=== PATIENT | male | born 2000 | race Caucasian/White ===

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

== ENCOUNTER 2019-12-12 14:30 | Emergency (ER) | payer OTHER | END 2019-12-12 15:30 | disposition home or self-care (01) | LOC: ERS 14:30 | DX: B86 Scabies (principal); F31.9 Bipolar disorder, unspecified; F41.9 Anxiety disorder, unspecified; F17.210 Nicotine dependence, cigarettes, uncomplicated | CPT/HCPCS: 99282 ==

== ENCOUNTER 2020-06-06 12:07 | Emergency (ER) | payer OTHER ==
[2020-06-06 12:54] LABS: Bilirubin Negative (Negative); Blood, Urine Negative (Negative); Clarity Clear (Clear); Glucose, Urine (Dipstick) Normal (Negative); Ketone, Urine Negative (Negative); Leukocyte Negative Leu/uL (Negative); Nitrite Negative (Negative); Protein, Urine (Dipstick) 10 mg/dL (Neg-Trace); Specific Gravity, Urine 1.033 (1.002-1.036); Urobilinogen Normal mg/dL (Less than 2); pH, Urine 5.5 (5.0-9.0)
[2020-06-07 20:12] LABS: Chlam.trachomatis by PCR,Urine DETECTED (NotDetected)
== END 2020-06-06 14:02 | disposition home or self-care (01) ==
LOC: ERS 12:07
DX: Z20.2 Contact with and (suspected) exposure to infections with a predominantly sexual mode of transmission (principal); F17.290 Nicotine dependence, other tobacco product, uncomplicated
CPT/HCPCS: 81003; 87491; 87591; 99281

== ENCOUNTER 2020-06-22 13:09 | Emergency (ER) | payer OTHER ==
[2020-06-22] MEDS ORDERED: Ibuprofen 200 MG TAB ONE (14:47)
== END 2020-06-22 14:55 | disposition home or self-care (01) ==
LOC: ERS 13:09
DX: M54.6 Pain in thoracic spine (principal); F17.290 Nicotine dependence, other tobacco product, uncomplicated
CPT/HCPCS: 99281

== ENCOUNTER 2021-04-02 12:47 | Emergency (ER) | payer OTHER, MEDICAID ==
[2021-04-02] MEDS ORDERED: Sulfameth/Trimethoprim DS 800-160mg TAB ONE (13:17)
[2021-04-02] MEDS ORDERED: Boostrix 0.5 ML (Tdap) VIAL ONE (13:17)
== END 2021-04-02 13:35 | disposition home or self-care (01) ==
LOC: ERS 12:47
DX: S61.451A Open bite of right hand, initial encounter (principal); L03.113 Cellulitis of right upper limb; F17.290 Nicotine dependence, other tobacco product, uncomplicated; W54.0XXA Bitten by dog, initial encounter
CPT/HCPCS: 90471; 90715